=== PATIENT | male | born 1980 | race Caucasian/White ===

== ENCOUNTER 2020-08-11 14:22 | Inpatient (IN) | payer OTHER ==
[~2020-08-11] VITALS: Ht 180.3 cm; Wt 127.9 kg
[2020-08-11] MEDS ORDERED: ONDANSETRON HCL 4MG/2ML INJ IV ONE (14:45)
[2020-08-11] MEDS ORDERED: FAMOTIDINE 20MG/2ML VIAL IV ONE (14:45)
[2020-08-11 15:00] LABS: BASOPHILS % 1.2 % (0.0-2.0); EOSINOPHILS % 1.8 % (0.0-5.0); HEMATOCRIT. 42.9 % (42.0-52.0); HEMOGLOBIN. 14.3 g/dL (14.0-18.0); LYMPHOCYTES % 17.6 % (20.0-50.0); MEAN CORPUSCULAR HEMOGLOBIN 30.4 pg (28.0-32.0); MEAN CORPUSCULAR VOLUME 91.2 fL (80.0-94.0); MEAN PLATELET VOLUME 10.2 fl (7.4-10.4); MONOCYTES % 5.2 % (2.0-8.0); NEUTROPHILS % 74.2 % (40.0-76.0); PLATELET 264 x1000/uL (130-400)
[2020-08-11 15:03] LABS: CLARITY URINE CLEAR (CLEAR); COLOR URINE YELLOW (YELLOW); KETONES URINE NEGATIVE (NEGATIVE); LEUKOCYTE ESTERASE URINE 1+ (NEGATIVE); NITRITE URINE NEGATIVE (NEGATIVE); OCCULT BLOOD URINE NEGATIVE (NEGATIVE); PH URINE 5.5 (4.5-8.0); PROTEIN URINE NEGATIVE (NEGATIVE); SPECIFIC GRAVITY URINE 1.034 (1.005-1.030); UROBILINOGEN URINE 0.2 E.U./dL (0.2-1.0)
[2020-08-11 15:08] LABS: CHLORIDE 88 mEq/L (98-107)
[2020-08-11 15:11] LABS: ETHANOL BLOOD < 10 mg/dL
[2020-08-11 15:12] LABS: PROTHROMBIN TIME 11.1 sec (9.6-11.0)
[2020-08-11] MEDS ORDERED: SODIUM CHLORIDE 0.9% 500 ML IV ONE ×2 (15:30→18:30)
[2020-08-11 15:46] LABS: *AMPHETAMINES SCREEN URINE PRESUMTIVE POSITIVE (NEGATIVE); *BARBITURATES SCREEN URINE NEGATIVE (NEGATIVE); *BENZODIAZEPINES SCREEN URINE NEGATIVE (NEGATIVE); *COCAINE SCREEN URINE NEGATIVE (NEGATIVE)
[2020-08-11 15:47] LABS: CANNABINOID URINE SCREEN NEGATIVE (NEGATIVE); METHADONE URINE SCREEN NEGATIVE (NEGATIVE); OPIATES URINE SCREEN NEGATIVE (NEGATIVE); PHENCYCLIDINE URINE SCREEN NEGATIVE (NEGATIVE)
[2020-08-11] MEDS ORDERED: INSULIN REGULAR (DRIP) 100 UNITS in SODIUM CHLORIDE 0.9% 99 ML IV ONE (18:30)
[2020-08-11] MEDS ORDERED: ONDANSETRON HCL 4MG/2ML INJ IV PRN (18:30)
[2020-08-11] MEDS ORDERED: ACETAMINOPHEN 325MG TABLET PO PRN (18:30)
[2020-08-11] MEDS: INSULIN REGULAR (DRIP) 100 UNITS in SODIUM CHLORIDE 0.9% 99 ML IV ONE ×2 (18:52→18:57)
[2020-08-11] MEDS: AMLODIPINE 10MG TABLET PO SCH (19:05)
[2020-08-11] MEDS: SODIUM CHLORIDE 0.9% 1,000 ML IV SCH (19:14)
[2020-08-11 20:07] LABS: CHLORIDE 99 mEq/L (98-107)
[2020-08-11 20:12] LABS: PHOSPHORUS 3.3 mg/dL (2.5-4.9)
[2020-08-12 01:01] LABS: CHLORIDE 103 mEq/L (98-107)
[2020-08-12 04:00] VITALS: BP 148/98
[2020-08-12] MEDS: SODIUM CHLORIDE 0.9% 1,000 ML IV SCH ×2 (04:57→05:34)
[2020-08-12 07:16] LABS: BASOPHILS % 0.7 % (0.0-2.0); EOSINOPHILS % 3.6 % (0.0-5.0); HEMATOCRIT. 38.1 % (42.0-52.0); HEMOGLOBIN. 13.1 g/dL (14.0-18.0); LYMPHOCYTES % 24.3 % (20.0-50.0); MEAN CORPUSCULAR HEMOGLOBIN 30.3 pg (28.0-32.0); MEAN CORPUSCULAR VOLUME 88.2 fL (80.0-94.0); MONOCYTES % 4.8 % (2.0-8.0); NEUTROPHILS % 66.6 % (40.0-76.0); PLATELET 238 x1000/uL (130-400); RED BLOOD CELL COUNT 4.32 mill/uL (4.7-6.1)
[2020-08-12 07:22] LABS: CHLORIDE 101 mEq/L (98-107)
[2020-08-12 08:00] VITALS: BP 105/66
[2020-08-12] MEDS ORDERED: DEXTROSE 50% WATER 50ML SYRINGE IV PRN (08:45)
[2020-08-12] MEDS ORDERED: INSULIN GLARGINE UD 100 UNITS/ML SYR SUBCUT ONE (08:45)
[2020-08-12] MEDS: AMLODIPINE 10MG TABLET PO SCH (09:00)
[2020-08-12 09:12] LABS: CHLORIDE 102 mEq/L (98-107)
[2020-08-12] MEDS: PANTOPRAZOLE SODIUM 40 MG/VIAL IV SCH (09:53)
[2020-08-12] MEDS ORDERED: INSULIN GLARGINE UD 100 UNITS/ML SYR SUBCUT SCH (10:00)
[2020-08-12 12:00] VITALS: BP 127/87
[2020-08-12] MEDS: BLOOD SUGAR DIAGNOSTIC STRIP TEST SCH ×3 (12:15→21:35)
[2020-08-12 12:51] LABS: CHLORIDE 100 mEq/L (98-107)
[2020-08-12] MEDS: INSULIN LISPRO 100 UNITS/ML SUBCUT SCH ×5 (13:06→21:34)
[2020-08-12] MEDS ORDERED: INSU100I28 SQ (13:25)
[2020-08-12 16:00] VITALS: BP 113/75
[2020-08-12] MEDS ORDERED: AMLO10TA80 MT (17:22)
[2020-08-12 20:00] VITALS: BP 154/81
[2020-08-12 20:19] LABS: CHLORIDE 101 mEq/L (98-107)
[2020-08-12] MEDS: INSULIN GLARGINE UD 100 UNITS/ML SYR SUBCUT SCH (21:34)
[2020-08-13] VITALS: BP 131/83
[2020-08-13 00:12] LABS: CHLORIDE 100 mEq/L (98-107)
[2020-08-13 04:00] VITALS: BP 119/82
[2020-08-13] MEDS: BLOOD SUGAR DIAGNOSTIC STRIP TEST SCH ×3 (06:45→16:43)
[2020-08-13] MEDS: INSULIN LISPRO 100 UNITS/ML SUBCUT SCH ×6 (06:48→16:43)
[2020-08-13 08:00] VITALS: BP 125/92
[2020-08-13] MEDS: AMLODIPINE 10MG TABLET PO SCH (09:53)
[2020-08-13] MEDS: PANTOPRAZOLE SODIUM 40 MG/VIAL IV SCH (09:53)
[2020-08-13] MEDS: INSULIN GLARGINE UD 100 UNITS/ML SYR SUBCUT SCH (09:54)
[2020-08-13 12:00] VITALS: BP 138/66
[2020-08-13] MEDS ORDERED: GLIPIZIDE 10MG TABLET PO SCH (13:00)
[2020-08-13] MEDS ORDERED: GLIP10TA10 MT (13:01)
[2020-08-13] MEDS ORDERED: METF-874 MT (13:01)
[2020-08-13 16:00] VITALS: BP 115/83
[2020-08-13 17:58] VITALS: BP 115/83
== END 2020-08-13 18:45 | disposition home or self-care (01) | DRG 420 ==
LOC: ER 14:22 → EDBEDREQTM 14:47 → EDBEDREQSVC 15:30 → EDBEDREQ 15:30 → 8WST 18:29 → EDBEDREQSVC 18:31 → EDBEDREQ 18:31 → EDBEDREQTM 18:31 → EDBEDREQSVC 08-12 00:40 → EDBEDREQTM 08-12 00:40 → ENRESERV 08-12 02:52
PROVIDERS: ADMIT Internal Medicine; ATTEND Internal Medicine
DX: E11.00 Type 2 diabetes mellitus with hyperosmolarity without nonketotic hyperglycemic-hyperosmolar coma (NKHHC) (principal); I16.0 Hypertensive urgency; E44.1 Mild protein-calorie malnutrition; E66.9 Obesity, unspecified; E87.1 Hypo-osmolality and hyponatremia; E87.8 Other disorders of electrolyte and fluid balance, not elsewhere classified; I10 Essential (primary) hypertension; E87.2 Acidosis; F15.90 Other stimulant use, unspecified, uncomplicated; R74.01 Elevation of levels of liver transaminase levels; Z71.51 Drug abuse counseling and surveillance of drug abuser; Z68.39 Body mass index [BMI] 39.0-39.9, adult
CPT/HCPCS: 36415; 71045; 80048; 80053; 80305; 80320; 81003; 82962; 83036; 83605; 83735; 83880; 84100; 84145; 84484; 85025; 93005; 99291; C9113; J1815; J2405; J3490; J7040; J7050; G0480